=== PATIENT | female | born 1995 | race Caucasian/White ===

== ENCOUNTER → 2021-07-02 | Outpatient (CLI) | payer OTHER | LOC: M WHC 10:04 | PROVIDERS: ATTEND Specialist | DX: Z34.81 Encounter for supervision of other normal pregnancy, first trimester (principal) ==

== ENCOUNTER → 2021-07-02 | Outpatient (CLI) | payer OTHER ==
[2021-07-02 13:43] LABS: HEMATOCRIT 40.2 % (36.0-47.0); HEMOGLOBIN 13.9 g/dl (12.0-15.5); MEAN CORPUSCULAR HEMOGLOBIN 30.9 pg (27.0-33.0); MEAN CORPUSCULAR HGB CONC 34.6 g/dl (32.0-36.5); MEAN CORPUSCULAR VOLUME 89.3 fl (80.0-96.0); PLATELET COUNT, AUTOMATED 215 10^3/uL (150-450); WHITE BLOOD COUNT 9.6 10^3/uL (4.0-10.0)
[2021-07-02 15:03] LABS: HEPATITIS C VIRUS ABY INDEX 0.2 INDEX (<0.8); HIV 1&2 SCREEN CENTAUR NEGATIVE (NEGATIVE)
[2021-07-02 15:49] LABS: GC DNA AMPLIFICATION NEGATIVE (NEGATIVE)
== END ==
LOC: M PLALAB 10:17
PROVIDERS: ATTEND Specialist
DX: Z34.81 Encounter for supervision of other normal pregnancy, first trimester (principal)

== ENCOUNTER → 2021-08-02 | Outpatient (CLI) | payer OTHER | LOC: M WHC 10:21 | PROVIDERS: ATTEND Specialist | DX: Z34.82 Encounter for supervision of other normal pregnancy, second trimester (principal) ==

== ENCOUNTER → 2021-09-23 | Outpatient (CLI) | payer OTHER ==
[2021-09-23 13:17] LABS: HEMATOCRIT 38.2 % (36.0-47.0); HEMOGLOBIN 12.3 g/dl (12.0-15.5); MEAN CORPUSCULAR HEMOGLOBIN 29.1 pg (27.0-33.0); MEAN CORPUSCULAR HGB CONC 32.2 g/dl (32.0-36.5); MEAN CORPUSCULAR VOLUME 90.3 fl (80.0-96.0); PLATELET COUNT, AUTOMATED 309 10^3/uL (150-450); RED BLOOD COUNT 4.23 10^6/uL (4.00-5.40)
== END ==
LOC: M PLALAB 09:36
PROVIDERS: ATTEND Advanced Practice Midwife
DX: Z34.82 Encounter for supervision of other normal pregnancy, second trimester (principal)

== ENCOUNTER → 2021-11-19 | Outpatient (REF) | payer OTHER | LOC: M PLALAB 10:04 | PROVIDERS: ATTEND Specialist | DX: Z34.83 Encounter for supervision of other normal pregnancy, third trimester (principal) ==

== ENCOUNTER 2021-12-09 22:19 | Outpatient (CLI) | payer OTHER ==
[~2021-12-09] VITALS: Ht 165.1 cm; Wt 91.5 kg
[2021-12-09 22:37] VITALS: BP 114/66
[2021-12-10] MEDS ORDERED: PRENTAB9 PO (00:52)
[2021-12-10 00:55] VITALS: BP 109/75
== END 2021-12-10 00:50 | disposition home or self-care (01) ==
LOC: M LDO 22:19
PROVIDERS: ATTEND Advanced Practice Midwife
DX: O60.03 Preterm labor without delivery, third trimester (principal); O26.893 Other specified pregnancy related conditions, third trimester; R10.2 Pelvic and perineal pain; Z3A.39 39 weeks gestation of pregnancy
CPT/HCPCS: 59025; G0463

== ENCOUNTER 2021-12-27 19:34 | Inpatient (IN) | payer OTHER ==
[~2021-12-27] VITALS: Ht 165.1 cm; Wt 92.5 kg
[~2021-12-27 19:34] MED LIST: PRENTAB9 PO
[2021-12-27 20:10] VITALS: BP 135/82
[2021-12-27] MEDS ORDERED: BENA25CA4 PO (20:41)
[2021-12-27] MEDS ORDERED: LIDOCAINE 1% MDV 20ML VIAL INFIL PRN (22:10)
[2021-12-27] MEDS ORDERED: METHYLERGONOVINE MALEATE 0.2 MG/ML VIAL (J2210) IM PRN (22:10)
[2021-12-27] MEDS ORDERED: CARBOPROST TROMETHAMINE 250 MCG/ML AMP IM PRN (22:10)
[2021-12-27] MEDS ORDERED: OXYTOCIN DRIP 30 UNITS in IV 1 EA IV PRN (22:10)
[2021-12-27] MEDS ORDERED: LACTATED RINGER'S 1000 ML IV STA (22:10)
[2021-12-27] MEDS ORDERED: CALCIUM CARBONATE 500 MG CHEW U/D PO ONE (22:25)
[2021-12-27 22:44] LABS: HEMATOCRIT 32.1 % (36.0-47.0); HEMOGLOBIN 9.8 g/dl (12.0-15.5); MEAN CORPUSCULAR HEMOGLOBIN 23.6 pg (27.0-33.0); MEAN CORPUSCULAR HGB CONC 30.5 g/dl (32.0-36.5); MEAN CORPUSCULAR VOLUME 77.2 fl (80.0-96.0); PLATELET COUNT, AUTOMATED 266 10^3/uL (150-450); RED BLOOD COUNT 4.16 10^6/uL (4.00-5.40); WHITE BLOOD COUNT 14.6 10^3/uL (4.0-10.0)
[2021-12-27] MEDS: miSOPROStol 50MCG 1/2 TABLET SL SCH (22:51)
[2021-12-28] VITALS (21 sets, daily range): BP systolic 98–147; BP diastolic 55–84
[2021-12-28] MEDS: miSOPROStol 50MCG 1/2 TABLET SL SCH ×3 (02:15→15:37)
[2021-12-28] MEDS: LR 1,000 ML IV SCH ×2 (12:48→20:43)
[2021-12-28] MEDS: CALCIUM CARBONATE 500 MG CHEW U/D PO PRN (16:24)
[2021-12-28] MEDS ORDERED: OXYTOCIN DRIP 30 UNITS in IV 1 EA IV SCH (20:25)
[2021-12-29] VITALS (25 sets, daily range): BP systolic 105–182; BP diastolic 57–87
[2021-12-29] MEDS: LR 1,000 ML IV SCH (00:02)
[2021-12-29] MEDS ORDERED: ONDANSETRON 4MG 2ML VIAL IV PRN ×2 (02:00→04:45)
[2021-12-29] MEDS ORDERED: diphenhydrAMINE 50MG/ML VIAL (J1200) IV PRN (02:00)
[2021-12-29] MEDS ORDERED: LR 500 ML IV PRN (02:00)
[2021-12-29] MEDS ORDERED: FENTANYL/ROPIVACAINE/NACL BAG 100 ML EPIDURAL SCH (02:00)
[2021-12-29] MEDS ORDERED: ePHEDrine SULFATE 25 MG/5 ML(5MG/ML) SYRINGE IVP PRN (02:00)
[2021-12-29] MEDS ORDERED: EPIDURAL/PCA KEYS XX PRN (02:00)
[2021-12-29] MEDS ORDERED: NALOXONE INJ 0.4MG/1ML VIAL (J2310 PER 1MG) IV PRN (02:00)
[2021-12-29] MEDS ORDERED: IBUPROFEN 600MG TAB PO PRN (04:45)
[2021-12-29] MEDS ORDERED: OXYTOCIN DRIP 30 UNITS in IV 1 EA IV SCH (04:45)
[2021-12-29] MEDS ORDERED: LR 1,000 ML IV SCH (04:45)
[2021-12-29] MEDS ORDERED: ACETAMINOPHEN TAB 650MG DOSE (2X325MG) PO PRN (04:45)
[2021-12-29] MEDS ORDERED: DIBUCAINE 1% OINTMENT 30GM TOP PRN (04:45)
[2021-12-29] MEDS ORDERED: RHOGAM 300 MCG (1500 IU) INJ (J2790) IM SCH (04:45)
[2021-12-29] MEDS: CALCIUM CARBONATE 500 MG CHEW U/D PO PRN (08:12)
[2021-12-29] MEDS: PRENATAL VITAMINS CHEWABLE TABLET PO SCH (08:12)
[2021-12-29] MEDS: IBUPROFEN 800 MG TAB PO PRN (13:08)
[2021-12-29] MEDS: ACETAMINOPHEN 500 MG TAB PO PRN ×2 (14:22→20:34)
[2021-12-29] MEDS: DOCUSATE SODIUM 100MG CAPSULE PO PRN (20:33)
[2021-12-30] MEDS: IBUPROFEN 800 MG TAB PO PRN ×2 (00:46→17:52)
[2021-12-30 06:00] VITALS: BP 99/62
[2021-12-30] MEDS: ACETAMINOPHEN 500 MG TAB PO PRN (07:33)
[2021-12-30] MEDS: PRENATAL VITAMINS CHEWABLE TABLET PO SCH (08:19)
[2021-12-30] MEDS ORDERED: IBUP80TA PO (12:19)
[2021-12-30] MEDS ORDERED: ACET-683 PO (12:19)
[2021-12-30] MEDS: DOCUSATE SODIUM 100MG CAPSULE PO PRN (17:56)
[2021-12-31] MEDS ORDERED: MEASLES,MUMPS,RUBELLA VACCINE INJ (MMR-II) (90707) SC.IMMUN ONE (09:00)
== END 2021-12-30 17:00 | disposition home or self-care (01) | DRG 807 ==
LOC: M LDO 19:34 → M LDI 22:08 → M OBS 12-29 06:39
PROVIDERS: ADMIT Obstetrics & Gynecology; ATTEND Obstetrics & Gynecology
PROC: 3E0P7GC Introduction of Other Therapeutic Substance into Female Reproductive, Via Natural or Artificial Opening (ICD-10-PCS; 2021-12-27)
PROC: 10E0XZZ Delivery of Products of Conception, External Approach (ICD-10-PCS; principal; 2021-12-29)
PROC: 0HQ9XZZ Repair Perineum Skin, External Approach (ICD-10-PCS; 2021-12-29)
PROC: 10907ZC Drainage of Amniotic Fluid, Therapeutic from Products of Conception, Via Natural or Artificial Opening (ICD-10-PCS; 2021-12-29)
DX: O48.0 Post-term pregnancy (principal); Z37.0 Single live birth; Z3A.42 42 weeks gestation of pregnancy; O69.1XX0 Labor and delivery complicated by cord around neck, with compression, not applicable or unspecified; O70.0 First degree perineal laceration during delivery

== ENCOUNTER → 2022-02-06 | Outpatient (CLI) | payer OTHER ==
[~2022-02-06] MED LIST changes: +ACET-683 PO; +BENA25CA4 PO; +IBUP80TA PO
== END ==
LOC: M WHC 09:45
PROVIDERS: ATTEND Nurse Practitioner Adult Health
DX: E04.1 Nontoxic single thyroid nodule (principal)

== ENCOUNTER → 2022-02-06 | Outpatient (CLI) | payer OTHER ==
[2022-02-06 15:43] LABS: FREE T4 0.93 NG/DL (0.76-1.46); THYROID STIMULATING HORMONE 0.884 uIU/ML (0.358-3.740)
[2022-02-06 18:17] LABS: THYROGLOBULIN ANTIBODY 33.7 U/ML (<60.0); THYROID PEROXIDASE ANTIBODY 35.8 U/ML (<60.0)
== END ==
LOC: M PLALAB 09:42
PROVIDERS: ATTEND Nurse Practitioner Adult Health
DX: E04.9 Nontoxic goiter, unspecified (principal)

== ENCOUNTER → 2022-04-15 | Outpatient (REF) | payer OTHER | LOC: M LAB REF 17:19 | PROVIDERS: ATTEND Internal Medicine Endocrinology, Diabetes & Metabolism | DX: E04.1 Nontoxic single thyroid nodule (principal) ==

== ENCOUNTER → 2022-06-06 | Outpatient (REF) | payer OTHER | LOC: M PLALAB 10:49 | PROVIDERS: ATTEND Nurse Practitioner Family | DX: Z12.4 Encounter for screening for malignant neoplasm of cervix (principal) | CPT/HCPCS: 87624; G0123; G0463 ==

== ENCOUNTER → 2022-11-20 | Outpatient (CLI) | payer OTHER ==
[2022-11-20 14:33] LABS: BASO # 0.1 10^3/uL (0.0-0.2); BASO % 0.8 % (0.0-1.0); EOS # 0.4 10^3/uL (0.0-0.5); EOS % 5.5 % (0.0-3.0); HEMATOCRIT 41.5 % (36.0-47.0); LYMPH # 2.4 10^3/uL (1.5-5.0); LYMPH % 33.7 % (24.0-44.0); MEAN CORPUSCULAR HEMOGLOBIN 28.3 pg (27.0-33.0); MEAN CORPUSCULAR HGB CONC 31.3 g/dl (32.0-36.5); MEAN CORPUSCULAR VOLUME 90.2 fl (80.0-96.0); MONO # 0.6 10^3/uL (0.0-0.8); MONO % 8.6 % (2.0-8.0); NEUTROPHILS # 3.6 10^3/uL (1.5-8.5); NEUTROPHILS % 51.3 % (36.0-66.0); PLATELET COUNT, AUTOMATED 282 10^3/uL (150-450); WHITE BLOOD COUNT 7.1 10^3/uL (4.0-10.0)
[2022-11-20 14:56] LABS: ALBUMIN 3.9 G/DL (3.2-5.2); ALKALINE PHOSPHATASE 70 U/L (46-116); ALT/SGPT 10 U/L (7.0-40); AST/SGOT < 8 U/L (<34); BILIRUBIN,TOTAL 0.6 MG/DL (0.3-1.2); BLOOD UREA NITROGEN 14 MG/DL (9-23); CALCIUM LEVEL 9.6 MG/DL (8.5-10.1); CARBON DIOXIDE LEVEL 24 MMOL/L (20-31); CHLORIDE LEVEL 107 MMOL/L (98-107); CREATININE FOR GFR 0.66 MG/DL (0.55-1.30); GLOMERULAR FILTRATION RATE > 60.0 (>60); GLUCOSE, FASTING 81 MG/DL (60-100); IRON (FE) 144 UG/DL (50-170); PERCENT SATURATION 38.9 % (13.2-45.0); POTASSIUM SERUM 4.4 MMOL/L (3.5-5.1); SODIUM LEVEL 140 MMOL/L (136-145); TOTAL IRON BINDING CAPACITY 370 UG/DL (250-425); VITAMIN B12 LEVEL 287 PG/ML (211-911)
[2022-11-20 14:59] LABS: FERRITIN 9.5 NG/ML (7.3-270.7); THYROID STIMULATING HORMONE 0.952 uIU/ML (0.55-4.78)
[2022-11-20 15:03] LABS: FREE T4 1.08 NG/DL (0.89-1.76)
[2022-11-20 15:04] LABS: FOLATE 14.33 NG/ML (>5.4)
== END ==
LOC: M PLALAB 11:20
PROVIDERS: ATTEND Nurse Practitioner Adult Health
DX: E04.1 Nontoxic single thyroid nodule (principal)